=== PATIENT | male | born 1955 | race Caucasian/White ===

== ENCOUNTER 2022-04-25 16:46 | Emergency (ER) | payer OTHER ==
[~2022-04-25] VITALS: Ht 182.9 cm; Wt 113.6 kg
[2022-04-25 16:48] VITALS: BP 164/82
[2022-04-25 18:30] LABS: BASO # 0.1 10^3/uL (0.0-0.2); BASO % 0.9 % (0.0-1.0); EOS # 0.1 10^3/uL (0.0-0.5); EOS % 0.6 % (0.0-3.0); HEMATOCRIT 45.4 % (42.0-52.0); LYMPH # 1.2 10^3/uL (1.5-5.0); LYMPH % 13.3 % (24.0-44.0); MEAN CORPUSCULAR HEMOGLOBIN 32.9 pg (27.0-33.0); MEAN CORPUSCULAR HGB CONC 35.2 g/dl (32.0-36.5); MEAN CORPUSCULAR VOLUME 93.4 fl (80.0-96.0); MONO # 1.1 10^3/uL (0.0-0.8); MONO % 12.6 % (2.0-8.0); NEUTROPHILS # 6.3 10^3/uL (1.5-8.5); NEUTROPHILS % 72.3 % (36.0-66.0); PLATELET COUNT, AUTOMATED 190 10^3/uL (150-450); RED BLOOD COUNT 4.86 10^6/uL (4.30-6.10); WHITE BLOOD COUNT 8.7 10^3/uL (4.0-10.0)
[2022-04-25 18:50] LABS: ALBUMIN 4.3 GM/DL (3.2-5.2); ALT/SGPT 44 U/L (12-78); BILIRUBIN,DIRECT 0.2 MG/DL (0.0-0.2); BILIRUBIN,TOTAL 0.4 MG/DL (0.2-1.0); BLOOD UREA NITROGEN 11 MG/DL (7-18); C REACTIVE PROTEIN QUANTITATIV 4.38 MG/DL (0.00-0.30); CALCIUM LEVEL 10.4 MG/DL (8.8-10.2); CARBON DIOXIDE LEVEL 28 MEQ/L (21-32); CHLORIDE LEVEL 104 MEQ/L (98-107); CREATININE FOR GFR 0.91 MG/DL (0.70-1.30); GLOMERULAR FILTRATION RATE > 60.0 (>49); GLUCOSE, FASTING 111 MG/DL (70-100); POTASSIUM SERUM 4.4 MEQ/L (3.5-5.1); SODIUM LEVEL 138 MEQ/L (136-145); TOTAL PROTEIN 8.2 GM/DL (6.4-8.2)
[2022-04-25 18:51] LABS: ERYTHROCYTE SEDIMENTATION RATE 15 mm/hr (0-20)
[2022-04-25] MEDS ORDERED: ceFAZolin SOD 1 GM in D5W MINI-BAG PLUS 50 ML IV ONE (19:25)
[2022-04-25] MEDS ORDERED: BACTRIM 160MG/800MG DS TAB PO ONE (21:50)
[2022-04-25] MEDS ORDERED: BACT800T5 PO (21:53)
== END 2022-04-25 22:05 | disposition home or self-care (01) ==
LOC: M ED 16:46
DX: L02.612 Cutaneous abscess of left foot (principal); M77.32 Calcaneal spur, left foot; S92.355A Nondisplaced fracture of fifth metatarsal bone, left foot, initial encounter for closed fracture; S93.125A Dislocation of metatarsophalangeal joint of left lesser toe(s), initial encounter; X58.XXXA Exposure to other specified factors, initial encounter; Y92.9 Unspecified place or not applicable; Y93.9 Activity, unspecified; Y99.9 Unspecified external cause status; I10 Essential (primary) hypertension; F17.200 Nicotine dependence, unspecified, uncomplicated
CPT/HCPCS: 73630; 80048; 80076; 83605; 85025; 85652; 86140; 87040; 87070; 87077; 87186; 87205; 93971; 96365; 99282; J0690

== ENCOUNTER 2022-04-28 15:32 | Inpatient (IN) | payer OTHER ==
[~2022-04-28] VITALS: Ht 182.9 cm; Wt 118.2 kg
[~2022-04-28 15:32] MED LIST: BACT800T5 PO
[2022-04-28] MEDS ORDERED: NS 1,000 ML IV ONE (18:50)
[2022-04-28 19:36] LABS: BASO # 0.1 10^3/uL (0.0-0.2); BASO % 0.7 % (0.0-1.0); EOS # 0.1 10^3/uL (0.0-0.5); EOS % 0.5 % (0.0-3.0); HEMATOCRIT 43.5 % (42.0-52.0); HEMOGLOBIN 15.1 g/dl (13.5-17.5); LYMPH # 1.7 10^3/uL (1.5-5.0); MEAN CORPUSCULAR HEMOGLOBIN 32.5 pg (27.0-33.0); MEAN CORPUSCULAR HGB CONC 34.7 g/dl (32.0-36.5); MEAN CORPUSCULAR VOLUME 93.5 fl (80.0-96.0); MONO # 1.3 10^3/uL (0.0-0.8); MONO % 11.7 % (2.0-8.0); NEUTROPHILS # 8.1 10^3/uL (1.5-8.5); NEUTROPHILS % 71.7 % (36.0-66.0); PLATELET COUNT, AUTOMATED 201 10^3/uL (150-450); RED BLOOD COUNT 4.65 10^6/uL (4.30-6.10); WHITE BLOOD COUNT 11.2 10^3/uL (4.0-10.0)
[2022-04-28] MEDS ORDERED: METF-839 PO (19:43)
[2022-04-28] MEDS ORDERED: PRAZ1CAP46 PO (19:43)
[2022-04-28] MEDS ORDERED: LISI20TA33 PO (19:43)
[2022-04-28] MEDS ORDERED: ASPI81TA26 PO (19:43)
[2022-04-28] MEDS ORDERED: ZOLO100T PO (19:43)
[2022-04-28] MEDS ORDERED: VITA100093 PO (19:43)
[2022-04-28] MEDS ORDERED: THERTAB19 PO (19:43)
[2022-04-28] MEDS ORDERED: OMEG10002 PO (19:43)
[2022-04-28] MEDS ORDERED: BACTDSTA PO (19:43)
[2022-04-28] MEDS ORDERED: ALOG25TA PO (19:43)
[2022-04-28] MEDS ORDERED: ATOR1TAB21 PO (19:43)
[2022-04-28] MEDS ORDERED: IBUP1TAB7 PO (19:43)
[2022-04-28] MEDS ORDERED: HOME MED LIST COMPLETE! XX SCH (19:45)
[2022-04-28 19:57] LABS: ERYTHROCYTE SEDIMENTATION RATE 36 mm/hr (0-20)
[2022-04-28 20:01] LABS: BLOOD UREA NITROGEN 14 MG/DL (7-18); C REACTIVE PROTEIN QUANTITATIV 7.09 MG/DL (0.00-0.30); CARBON DIOXIDE LEVEL 26 MEQ/L (21-32); CHLORIDE LEVEL 102 MEQ/L (98-107); CREATININE FOR GFR 0.91 MG/DL (0.70-1.30); GLOMERULAR FILTRATION RATE > 60.0 (>49); GLUCOSE, FASTING 110 MG/DL (70-100); POTASSIUM SERUM 4.7 MEQ/L (3.5-5.1); SODIUM LEVEL 135 MEQ/L (136-145)
[2022-04-28 20:04] LABS: RSV AMPLIFICATION NEGATIVE (NEGATIVE)
[2022-04-28 20:27] LABS: CK-MB VALUE MASS 3.7 NG/ML (<3.6); MB/CK RELATIVE INDEX 3.11 (< OR =4)
[2022-04-28 20:28] LABS: ALBUMIN 4.1 GM/DL (3.2-5.2); ALT/SGPT 36 U/L (12-78); BILIRUBIN,DIRECT 0.2 MG/DL (0.0-0.2); BILIRUBIN,TOTAL 0.5 MG/DL (0.2-1.0); LIPASE 131 U/L (73-393); TOTAL PROTEIN 7.8 GM/DL (6.4-8.2)
[2022-04-28] MEDS: INSULIN LISPRO (NovoLOG) PER UNIT SC SCH (21:00)
[2022-04-28] MEDS ORDERED: ISOVUE-370 76% 100ML VIAL As Ordered ONE (21:25)
[2022-04-28] MEDS ORDERED: ONDANSETRON 4MG 2ML VIAL IV ONE (21:30)
[2022-04-28] MEDS ORDERED: MORPHINE 4 MG/ML 1ML VIAL/SYRINGE IV ONE (21:30)
[2022-04-28] MEDS ORDERED: cefTRIAXone SOD 1 GM in D5W MINI-BAG PLUS 50 ML IV ONE (22:00)
[2022-04-28] MEDS ORDERED: KETOROLAC 30 MG/ML 1ML VIAL IV PRN (23:45)
[2022-04-28] MEDS ORDERED: DEXTROSE 50% 50 ML SYRINGE IV PRN (23:45)
[2022-04-28] MEDS ORDERED: GLUCOSE 4GM CHEW TABLET PO PRN (23:45)
[2022-04-28] MEDS ORDERED: GLUCAGON INJ 1MG VIAL SC PRN (23:45)
[2022-04-28] MEDS ORDERED: MAALOX 30 ML SUSP *UDC PO PRN (23:45)
[2022-04-28] MEDS ORDERED: MOM 30ML SUSPENSION UDC PO PRN (23:45)
[2022-04-28] MEDS ORDERED: ACETAMINOPHEN TAB 650MG DOSE (2X325MG) PO PRN (23:45)
[2022-04-28] MEDS ORDERED: VANCOMYCIN HCL 1,000 MG, VIAL MATE ADAPTER 1 EACH in NS 250 ML IV SCH (23:45)
[2022-04-28] MEDS ORDERED: traMADol 50 MG TAB PO PRN (23:45)
[2022-04-29 00:40] VITALS: BP 133/74
[2022-04-29] MEDS ORDERED: VANCOMYCIN HCL 1,000 MG, VIAL MATE ADAPTER 1 EACH in NS 250 ML IV ONE ×2 (01:00→02:00)
[2022-04-29 06:00] VITALS: BP 118/55
[2022-04-29 06:28] LABS: HEMATOCRIT 44.3 % (42.0-52.0); MEAN CORPUSCULAR HGB CONC 33.9 g/dl (32.0-36.5); MEAN CORPUSCULAR VOLUME 94.5 fl (80.0-96.0); PLATELET COUNT, AUTOMATED 195 10^3/uL (150-450); RED BLOOD COUNT 4.69 10^6/uL (4.30-6.10); WHITE BLOOD COUNT 8.8 10^3/uL (4.0-10.0)
[2022-04-29 06:51] LABS: BLOOD UREA NITROGEN 15 MG/DL (7-18); CALCIUM LEVEL 9.6 MG/DL (8.8-10.2); CARBON DIOXIDE LEVEL 29 MEQ/L (21-32); CHLORIDE LEVEL 104 MEQ/L (98-107); CREATININE FOR GFR 0.94 MG/DL (0.70-1.30); GLOMERULAR FILTRATION RATE > 60.0 (>49); GLUCOSE, FASTING 101 MG/DL (70-100); MAGNESIUM LEVEL 2.2 MG/DL (1.8-2.4); POTASSIUM SERUM 4.6 MEQ/L (3.5-5.1); SODIUM LEVEL 138 MEQ/L (136-145)
[2022-04-29] MEDS: INSULIN LISPRO (NovoLOG) PER UNIT SC SCH ×4 (07:30→21:00)
[2022-04-29] MEDS ORDERED: IBUPROFEN 800 MG TAB PO SCH (09:00)
[2022-04-29] MEDS ORDERED: VANCOMYCIN HCL 750 MG, VIAL MATE ADAPTER 1 EACH in NS 250 ML IV SCH (10:00)
[2022-04-29] MEDS: ASPIRIN 81MG ENTERIC TABLET PO SCH (10:54)
[2022-04-29] MEDS: ceFAZolin SOD 2 GM in IV 1 EA IV SCH ×2 (10:54→17:56)
[2022-04-29] MEDS: SERTRALINE 100 MG TAB PO SCH (10:54)
[2022-04-29] MEDS: DOCUSATE SODIUM 100MG CAPSULE PO SCH ×2 (10:54→20:08)
[2022-04-29] MEDS ORDERED: VANCOMYCIN HCL 500 MG in D5W MINI-BAG PLUS 100 ML IV SCH (11:00)
[2022-04-29] MEDS ORDERED: KETOROLAC 30 MG/ML 1ML VIAL IV PRN (11:15)
[2022-04-29] MEDS: ATORVASTATIN 20 MG TAB PO SCH (20:08)
[2022-04-29] MEDS: PRAZOSIN 1 MG CAP PO SCH (20:09)
[2022-04-29 21:24] VITALS: BP 129/57
[2022-04-30] VITALS (8 sets, daily range): BP systolic 112–123; BP diastolic 58–71
[2022-04-30] MEDS: ceFAZolin SOD 2 GM in IV 1 EA IV SCH ×3 (01:07→18:51)
[2022-04-30 06:57] LABS: BASO # 0.1 10^3/uL (0.0-0.2); EOS # 0.1 10^3/uL (0.0-0.5); EOS % 1.2 % (0.0-3.0); HEMATOCRIT 41.9 % (42.0-52.0); HEMOGLOBIN 14.5 g/dl (13.5-17.5); LYMPH # 1.4 10^3/uL (1.5-5.0); LYMPH % 16.8 % (24.0-44.0); MEAN CORPUSCULAR HEMOGLOBIN 32.9 pg (27.0-33.0); MEAN CORPUSCULAR HGB CONC 34.6 g/dl (32.0-36.5); MONO % 12.6 % (2.0-8.0); NEUTROPHILS # 5.5 10^3/uL (1.5-8.5); NEUTROPHILS % 67.8 % (36.0-66.0); PLATELET COUNT, AUTOMATED 208 10^3/uL (150-450); RED BLOOD COUNT 4.41 10^6/uL (4.30-6.10); WHITE BLOOD COUNT 8.1 10^3/uL (4.0-10.0)
[2022-04-30] MEDS: INSULIN LISPRO (NovoLOG) PER UNIT SC SCH ×4 (07:30→20:47)
[2022-04-30 07:36] LABS: ERYTHROCYTE SEDIMENTATION RATE 39 mm/hr (0-20)
[2022-04-30 08:13] LABS: ALBUMIN 3.3 GM/DL (3.2-5.2); ALT/SGPT 31 U/L (12-78); BILIRUBIN,TOTAL 0.6 MG/DL (0.2-1.0); BLOOD UREA NITROGEN 17 MG/DL (7-18); C REACTIVE PROTEIN QUANTITATIV 8.35 MG/DL (0.00-0.30); CARBON DIOXIDE LEVEL 27 MEQ/L (21-32); CHLORIDE LEVEL 107 MEQ/L (98-107); CREATININE FOR GFR 1.02 MG/DL (0.70-1.30); GLOMERULAR FILTRATION RATE > 60.0 (>49); GLUCOSE, FASTING 128 MG/DL (70-100); MAGNESIUM LEVEL 2.3 MG/DL (1.8-2.4); PHOSPHORUS LEVEL 2.7 MG/DL (2.5-4.9); POTASSIUM SERUM 4.4 MEQ/L (3.5-5.1); SODIUM LEVEL 137 MEQ/L (136-145); TOTAL PROTEIN 7.8 GM/DL (6.4-8.2)
[2022-04-30] MEDS: SERTRALINE 100 MG TAB PO SCH (08:55)
[2022-04-30] MEDS: DOCUSATE SODIUM 100MG CAPSULE PO SCH ×2 (08:55→21:02)
[2022-04-30] MEDS: ASPIRIN 81MG ENTERIC TABLET PO SCH (08:55)
[2022-04-30 09:19] LABS: CHOLESTEROL LEVEL 142 MG/DL (<200); CHOLESTEROL RISK RATIO 4.176 (<5); HDL CHOLESTEROL 34 MG/DL (>40); LDL CHOLESTEROL 84 MG/DL (<100); NON-HDL-C 108 MG/DL; TRIGLYCERIDES LEVEL 119 MG/DL (<150)
[2022-04-30] MEDS ORDERED: BUPIVACAINE HCL 0.5% 30ML VIAL As Ordered ONE (16:25)
[2022-04-30] MEDS ORDERED: GENTAMICIN SULF 80MG/2ML VIAL As Ordered ONE ×2 (16:25→17:07)
[2022-04-30] MEDS ORDERED: LIDOCAINE 2% MDV 20ML VIAL As Ordered ONE (16:25)
[2022-04-30] MEDS ORDERED: TOBRAMYCIN SULF 1.2GM VIAL As Ordered ONE (17:03)
[2022-04-30] MEDS ORDERED: propofoL 200 MG/20 ML VIAL As Ordered ONE (17:16)
[2022-04-30] MEDS ORDERED: LIDOCAINE 2% 100MG/5ML SDV (FOR ANES.) As Ordered ONE (17:16)
[2022-04-30] MEDS ORDERED: MIDAZOLAM INJ 2MG/2ML VIAL (J2250 PER 1MG) As Ordered ONE (17:16)
[2022-04-30] MEDS ORDERED: fentaNYL 100 MCG/2 ML INJECTION As Ordered ONE (17:17)
[2022-04-30] MEDS ORDERED: ePHEDrine SULFATE 25 MG/5 ML(5MG/ML) SYRINGE As Ordered ONE (18:33)
[2022-04-30] MEDS ORDERED: LIDOCAINE 5% OINT 30GM TUBE As Ordered ONE (18:33)
[2022-04-30] MEDS ORDERED: KETOROLAC 60MG 2ML VIAL As Ordered ONE (18:33)
[2022-04-30] MEDS ORDERED: oxyCODONE 5MG TAB PO PRN (18:35)
[2022-04-30] MEDS ORDERED: fentaNYL 100 MCG/2 ML INJECTION IV PRN (18:35)
[2022-04-30] MEDS ORDERED: LR 1,000 ML IV SCH (18:35)
[2022-04-30] MEDS ORDERED: ONDANSETRON 4MG 2ML VIAL IV PRN (18:35)
[2022-04-30] MEDS: ATORVASTATIN 20 MG TAB PO SCH (21:02)
[2022-04-30] MEDS: PRAZOSIN 1 MG CAP PO SCH (21:02)
[2022-05-01] VITALS (7 sets, daily range): BP systolic 111–123; BP diastolic 54–88
[2022-05-01] MEDS: ceFAZolin SOD 2 GM in IV 1 EA IV SCH ×3 (02:03→18:09)
[2022-05-01 06:47] LABS: HEMATOCRIT 42.8 % (42.0-52.0); HEMOGLOBIN 14.2 g/dl (13.5-17.5); MEAN CORPUSCULAR HEMOGLOBIN 31.4 pg (27.0-33.0); MEAN CORPUSCULAR HGB CONC 33.2 g/dl (32.0-36.5); MEAN CORPUSCULAR VOLUME 94.7 fl (80.0-96.0); PLATELET COUNT, AUTOMATED 246 10^3/uL (150-450); RED BLOOD COUNT 4.52 10^6/uL (4.30-6.10); WHITE BLOOD COUNT 8.1 10^3/uL (4.0-10.0)
[2022-05-01 07:28] LABS: BLOOD UREA NITROGEN 18 MG/DL (7-18); CALCIUM LEVEL 9.6 MG/DL (8.8-10.2); CARBON DIOXIDE LEVEL 29 MEQ/L (21-32); CHLORIDE LEVEL 109 MEQ/L (98-107); CREATININE FOR GFR 0.78 MG/DL (0.70-1.30); GLOMERULAR FILTRATION RATE > 60.0 (>49); GLUCOSE, FASTING 117 MG/DL (70-100); POTASSIUM SERUM 4.8 MEQ/L (3.5-5.1); SODIUM LEVEL 139 MEQ/L (136-145)
[2022-05-01] MEDS: DOCUSATE SODIUM 100MG CAPSULE PO SCH ×2 (08:52→20:21)
[2022-05-01] MEDS: INSULIN LISPRO (NovoLOG) PER UNIT SC SCH ×4 (08:52→20:15)
[2022-05-01] MEDS: SERTRALINE 100 MG TAB PO SCH (08:52)
[2022-05-01] MEDS: ASPIRIN 81MG ENTERIC TABLET PO SCH (08:52)
[2022-05-01] MEDS: ATORVASTATIN 20 MG TAB PO SCH (20:21)
[2022-05-01] MEDS: PRAZOSIN 1 MG CAP PO SCH (20:24)
[2022-05-02] MEDS: ceFAZolin SOD 2 GM in IV 1 EA IV SCH ×3 (02:14→17:43)
[2022-05-02 06:00] VITALS: BP 125/66
[2022-05-02 07:19] LABS: HEMATOCRIT 41.3 % (42.0-52.0); HEMOGLOBIN 14.1 g/dl (13.5-17.5); MEAN CORPUSCULAR HEMOGLOBIN 32.3 pg (27.0-33.0); MEAN CORPUSCULAR HGB CONC 34.1 g/dl (32.0-36.5); MEAN CORPUSCULAR VOLUME 94.7 fl (80.0-96.0); PLATELET COUNT, AUTOMATED 248 10^3/uL (150-450); RED BLOOD COUNT 4.36 10^6/uL (4.30-6.10); WHITE BLOOD COUNT 6.4 10^3/uL (4.0-10.0)
[2022-05-02 07:42] LABS: BLOOD UREA NITROGEN 13 MG/DL (7-18); CALCIUM LEVEL 9.8 MG/DL (8.8-10.2); CARBON DIOXIDE LEVEL 27 MEQ/L (21-32); CHLORIDE LEVEL 108 MEQ/L (98-107); CREATININE FOR GFR 0.77 MG/DL (0.70-1.30); GLOMERULAR FILTRATION RATE > 60.0 (>49); GLUCOSE, FASTING 142 MG/DL (70-100); POTASSIUM SERUM 4.6 MEQ/L (3.5-5.1); SODIUM LEVEL 140 MEQ/L (136-145)
[2022-05-02] MEDS: DOCUSATE SODIUM 100MG CAPSULE PO SCH ×2 (08:34→21:01)
[2022-05-02] MEDS: ASPIRIN 81MG ENTERIC TABLET PO SCH (08:34)
[2022-05-02] MEDS: INSULIN LISPRO (NovoLOG) PER UNIT SC SCH ×4 (08:34→20:52)
[2022-05-02] MEDS: SERTRALINE 100 MG TAB PO SCH (08:34)
[2022-05-02 14:00] VITALS: BP 120/62
[2022-05-02 20:30] LABS: C REACTIVE PROTEIN QUANTITATIV 2.04 MG/DL (0.00-0.30)
[2022-05-02] MEDS: ATORVASTATIN 20 MG TAB PO SCH (21:01)
[2022-05-02] MEDS: PRAZOSIN 1 MG CAP PO SCH (21:01)
[2022-05-03] MEDS: ceFAZolin SOD 2 GM in IV 1 EA IV SCH (01:55)
[2022-05-03 05:59] VITALS: BP 108/60
[2022-05-03 06:22] LABS: HEMATOCRIT 40.9 % (42.0-52.0); HEMOGLOBIN 14.2 g/dl (13.5-17.5); MEAN CORPUSCULAR HEMOGLOBIN 32.4 pg (27.0-33.0); MEAN CORPUSCULAR HGB CONC 34.7 g/dl (32.0-36.5); MEAN CORPUSCULAR VOLUME 93.4 fl (80.0-96.0); PLATELET COUNT, AUTOMATED 263 10^3/uL (150-450); RED BLOOD COUNT 4.38 10^6/uL (4.30-6.10); WHITE BLOOD COUNT 6.4 10^3/uL (4.0-10.0)
[2022-05-03 06:52] LABS: BLOOD UREA NITROGEN 15 MG/DL (7-18); CALCIUM LEVEL 9.7 MG/DL (8.8-10.2); CARBON DIOXIDE LEVEL 28 MEQ/L (21-32); CHLORIDE LEVEL 108 MEQ/L (98-107); CREATININE FOR GFR 0.77 MG/DL (0.70-1.30); GLOMERULAR FILTRATION RATE > 60.0 (>49); GLUCOSE, FASTING 130 MG/DL (70-100); POTASSIUM SERUM 4.7 MEQ/L (3.5-5.1); SODIUM LEVEL 141 MEQ/L (136-145)
[2022-05-03] MEDS ORDERED: ACET1TAB55 PO (07:54)
[2022-05-03] MEDS ORDERED: TRAM50TA2 PO (07:54)
[2022-05-03] MEDS ORDERED: CLIN150C17 PO (08:00)
[2022-05-03] MEDS ORDERED: PROB1CAP10 PO (08:00)
[2022-05-03] MEDS: ASPIRIN 81MG ENTERIC TABLET PO SCH (08:23)
[2022-05-03] MEDS: DOCUSATE SODIUM 100MG CAPSULE PO SCH (08:23)
[2022-05-03] MEDS: INSULIN LISPRO (NovoLOG) PER UNIT SC SCH (08:24)
[2022-05-03] MEDS: SERTRALINE 100 MG TAB PO SCH (08:24)
[2022-05-03 08:26] VITALS: BP 138/65
== END 2022-05-03 10:25 | disposition home or self-care (01) | DRG 629 ==
LOC: M ED 15:32 → M ED INP 15:33 → ENRESERV 04-29 00:11 → M MS5PR 04-29 00:43 → OBSVTOIN 05-01 10:46 → UNDODISIN 05-03 10:25
PROVIDERS: ADMIT Family Medicine; ATTEND Internal Medicine
PROC: 0QBP0ZZ Excision of Left Metatarsal, Open Approach (ICD-10-PCS; principal; 2022-04-30 17:00)
DX: E11.69 Type 2 diabetes mellitus with other specified complication (principal); L97.528 Non-pressure chronic ulcer of other part of left foot with other specified severity; L03.116 Cellulitis of left lower limb; M86.9 Osteomyelitis, unspecified; I10 Essential (primary) hypertension; E78.5 Hyperlipidemia, unspecified; N40.0 Benign prostatic hyperplasia without lower urinary tract symptoms; E11.621 Type 2 diabetes mellitus with foot ulcer; F41.9 Anxiety disorder, unspecified; F32.A Depression, unspecified; Z88.5 Allergy status to narcotic agent; B95.61 Methicillin susceptible Staphylococcus aureus infection as the cause of diseases classified elsewhere; K76.0 Fatty (change of) liver, not elsewhere classified; R16.0 Hepatomegaly, not elsewhere classified; E66.9 Obesity, unspecified; Z68.35 Body mass index [BMI] 35.0-35.9, adult; Z79.82 Long term (current) use of aspirin; Z79.899 Other long term (current) drug therapy

== ENCOUNTER 2022-05-04 09:43 | Outpatient (CLI) | payer OTHER ==
[~2022-05-04 09:43] MED LIST changes: +ACET1TAB55 PO; +ALOG25TA PO; +ASPI81TA26 PO; +ATOR1TAB21 PO; +BACTDSTA PO; +CLIN150C17 PO; +IBUP1TAB7 PO; +LISI20TA33 PO; +METF-839 PO; +OMEG10002 PO; +PRAZ1CAP46 PO; +PROB1CAP10 PO; +THERTAB19 PO; +TRAM50TA2 PO; +VITA100093 PO; +ZOLO100T PO
[2022-05-04] MEDS ORDERED: DALBAVANCIN 1,500 MG in D5W 250 ML IV ONE (13:00)
== END 2022-05-04 13:25 | disposition home or self-care (01) ==
LOC: M INFU 09:43 → M MS5PR 10:14 → M INFU 13:25
PROVIDERS: ATTEND Internal Medicine
DX: L03.116 Cellulitis of left lower limb (principal); Z88.5 Allergy status to narcotic agent
CPT/HCPCS: 96365; J0875